=== PATIENT | female | born 1955 | race Caucasian/White ===

== ENCOUNTER → 2016-08-14 | Outpatient (CLI) | payer MEDICARE ==
--- NOTE | 2016-08-18 08:11 | MM ---
Reason for exam: screening (asymptomatic). Last mammogram was performed 15 years ago. History: Patient is postmenopausal. Family history of breast cancer. Reductions of both breasts, 2000. Physical Findings: A clinical breast exam by your physician is recommended on an annual basis and results should be correlated with mammographic findings. MG 3D Screening Mammo W/Cad Bilateral CC and MLO view(s) were taken. No prior studies available for comparison. 5mm circumscribed ovoid nodule 9 o'clock left breast anterior to middle depth. 6 months follow up recommended. Bilateral foci of fat necrosis. ASSESSMENT: Probably benign, BI-RAD 3 RECOMMENDATION: Follow-up diagnostic mammogram of the left breast in 6 months.
== END | disposition home or self-care (01) ==
LOC: RADMAMWWP 14:28
PROVIDERS: ATTEND Family Medicine
DX: Z12.31 Encounter for screening mammogram for malignant neoplasm of breast (principal)
CPT/HCPCS: 77063; G0202

== ENCOUNTER 2018-04-07 14:22 | Inpatient (IN) | payer MEDICARE ==
[2018-04-07] MEDS ORDERED: methylPREDNISolone SOD SUCCI 125 MG/2 ML VIAL IV STA (14:29)
[2018-04-07] MEDS ORDERED: IPRATROPIUM-ALBUTEROL 3 ML NEB INHALATION STA (14:29)
[2018-04-07] MEDS ORDERED: LORazepam 2 MG/ML INJ IV STA (14:31)
--- NOTE | 2018-04-07 14:38 | ED ---
SOB HPI - General Stated Complaint: NAN Time Seen by Provider: 04/07/18 14:22 Source: patient, RN notes reviewed Mode of arrival: EMS Limitations: no limitations - History of Present Illness Initial Comments: This is a 62-year-old female was brought in by EMS with complaints of shortness of breath which began last evening she started having worsening symptoms also had nausea vomiting 3 starting at 5 AM this morning felt febrile. Had a cough some dark phlegm until just prior to arrival here notes clear she denies any overt fevers chills and denies any chest pain. Upon arrival she is noted to be very dyspneic and appears be hyperventilating. MD Complaint: shortness of breath, anxiety - Related Data Home Medications Medication Instructions Recorded Confirmed Dm/PE/Acetaminophen/Doxylamine 1 tab PO Q6HR PRN 04/07/18 04/07/18 [Vicks Nyquil Severe Cold-Flu] Gabapentin [Neurontin] 100 mg PO HS 04/07/18 04/07/18 Ibuprofen [Motrin] 800 mg PO TID PRN 04/07/18 04/07/18 Loperamide [Imodium] 2 mg PO TID-W/MEALS 04/07/18 04/07/18 Ranitidine HCl 300 mg PO BID 04/07/18 04/07/18 Allergies Allergy/AdvReac Type Severity Reaction Status Date / Time acetaminophen [From Vicodin] Allergy Unknown Verified 04/07/18 15:56 fentanyl Allergy Unknown Verified 04/07/18 15:56 fluticasone Allergy Unknown Verified 04/07/18 15:56 [From Advair Diskus] hydrocodone [From Vicodin] Allergy Unknown Verified 04/07/18 15:56 morphine Allergy Unknown Verified 04/07/18 15:56 salmeterol Allergy Unknown Verified 04/07/18 15:56 [From Advair Diskus] tramadol [From Ultram] Allergy Unknown Verified 04/07/18 15:56 some metals Allergy Unknown Uncoded 04/07/18 14:54 Review of Systems ROS Statement: Those systems with pertinent positive or pertinent negative responses have been documented in the HPI. ROS Other: All systems not noted in ROS Statement are negative. Past Medical History Past Medical History: COPD, Fibromyalgia Additional Past Medical History / Comment(s): back pain. diverticulosis History of Any Multi-Drug Resistant Organisms: None Reported Past Surgical History: Cholecystectomy, Hysterectomy Additional Past Surgical History / Comment(s): breast reduction. Past Psychological History: No Psychological Hx Reported Smoking Status: Former smoker Past Alcohol Use History: Rare Past Drug Use History: None Reported General Exam - General Exam Comments Initial Comments: This a well-developed well-nourished awake alert anxious appearing female she does appear to be hyperventilating. Limitations: no limitations General appearance: alert, anxious Head exam: Present: atraumatic, normocephalic, normal inspection Eye exam: Present: normal appearance, PERRL, EOMI. Absent: scleral icterus, conjunctival injection, periorbital swelling ENT exam: Present: normal exam, mucous membranes moist Neck exam: Present: normal inspection. Absent: tenderness, meningismus, lymphadenopathy Respiratory exam: Present: wheezes, decreased breath sounds. Absent: respiratory distress, rales, rhonchi, stridor Cardiovascular Exam: Present: normal rhythm, tachycardia, normal heart sounds. Absent: systolic murmur, diastolic murmur, rubs, gallop, clicks GI/Abdominal exam: Present: soft, normal bowel sounds. Absent: distended, tenderness, guarding, rebound, rigid Extremities exam: Present: normal inspection, full ROM, normal capillary refill. Absent: tenderness, pedal edema, joint swelling, calf tenderness Back exam: Present: normal inspection Neurological exam: Present: alert, oriented X3, CN II-XII intact Psychiatric exam: Present: normal affect, normal mood Skin exam: Present: warm, dry, intact, normal color. Absent: rash Course Vital Signs 04/07/18 04/07/18 04/07/18 14:27 14:30 14:34 Temperature 100.8 F H Pulse Rate 119 H 110 H Respiratory 30 H 34 H Rate Blood Pressure 160/77 O2 Sat by Pulse 98 Oximetry 04/07/18 04/07/18 14:44 16:15 Temperature 101.8 F H Pulse Rate 106 H 106 H Respiratory 20 Rate Blood Pressure 141/81 O2 Sat by Pulse 97 Oximetry - Reevaluation(s) Reevaluation #1: 04/07/18 17:16 I did reevaluate patient several occasions she still feeling much better though her breathing has improved she is not hyperventilating a more. Repeat examination reveals diminished breath sounds. Medical Decision Making - Medical Decision Making Patient will be admitted with treatment for COPD exacerbation her lactic acid was elevated she did receive adequate IV fluids IV antibiotics she likely also has a right maxillary sinusitis. - Lab Data Result diagrams: 04/07/18 14:45 04/07/18 14:45 Lab Results 04/07/18 04/07/18 04/07/18 Range/Units 14:45 14:45 14:45 WBC 11.6 H (3.8-10.6) k/uL RBC 3.81 (3.80-5.40) m/uL Hgb 11.3 L (11.4-16.0) gm/dL Hct 33.6 L (34.0-46.0) % MCV 88.2 (80.0-100.0) fL MCH 29.7 (25.0-35.0) pg MCHC 33.7 (31.0-37.0) g/dL RDW 12.9 (11.5-15.5) % Plt Count 296 (150-450) k/uL Neutrophils % 88 % Lymphocytes % 6 % Monocytes % 3 % Eosinophils % 2 % Basophils % 0 % Neutrophils # 10.2 H (1.3-7.7) k/uL Lymphocytes # 0.6 L (1.0-4.8) k/uL Monocytes # 0.4 (0-1.0) k/uL Eosinophils # 0.2 (0-0.7) k/uL Basophils # 0.0 (0-0.2) k/uL PT (9.0-12.0) sec INR (<1.2) APTT (22.0-30.0) sec D-Dimer (<0.60) mg/L FEU Sodium 141 (137-145) mmol/L Potassium 4.0 (3.5-5.1) mmol/L Chloride 111 H (98-107) mmol/L Carbon Dioxide 18 L (22-30) mmol/L Anion Gap 12 mmol/L BUN 14 (7-17) mg/dL Creatinine 0.70 (0.52-1.04) mg/dL Est GFR (CKD-EPI)AfAm >90 (>60 ml/min/1.73 sqM) Est GFR (CKD-EPI)NonAf >90 (>60 ml/min/1.73 sqM) Glucose 119 H (74-99) mg/dL Plasma Lactic Acid Arnoldo (0.7-2.0) mmol/L Calcium 9.7 (8.4-10.2) mg/dL Magnesium 1.6 (1.6-2.3) mg/dL Total Bilirubin 0.7 (0.2-1.3) mg/dL AST 52 H (14-36) U/L ALT 49 (9-52) U/L Alkaline Phosphatase 86 (38-126) U/L Total Creatine Kinase 99 (30-135) U/L CK-MB (CK-2) 0.4 (0.0-2.4) ng/mL CK-MB (CK-2) Rel Index 0.4 Troponin I <0.012 (0.000-0.034) ng/mL NT-Pro-B Natriuret Pep pg/mL Total Protein 7.1 (6.3-8.2) g/dL Albumin 4.3 (3.5-5.0) g/dL 04/07/18 04/07/18 04/07/18 Range/Units 14:45 14:45 14:45 WBC (3.8-10.6) k/uL RBC (3.80-5.40) m/uL Hgb (11.4-16.0) gm/dL Hct (34.0-46.0) % MCV (80.0-100.0) fL MCH (25.0-35.0) pg MCHC (31.0-37.0) g/dL RDW (11.5-15.5) % Plt Count (150-450) k/uL Neutrophils % % Lymphocytes % % Monocytes % % Eosinophils % % Basophils % % Neutrophils # (1.3-7.7) k/uL Lymphocytes # (1.0-4.8) k/uL Monocytes # (0-1.0) k/uL Eosinophils # (0-0.7) k/uL Basophils # (0-0.2) k/uL PT 9.7 (9.0-12.0) sec INR 1.0 (<1.2) APTT 18.2 L (22.0-30.0) sec D-Dimer 0.42 (<0.60) mg/L FEU Sodium (137-145) mmol/L Potassium (3.5-5.1) mmol/L Chloride (98-107) mmol/L Carbon Dioxide (22-30) mmol/L Anion Gap mmol/L BUN (7-17) mg/dL Creatinine (0.52-1.04) mg/dL Est GFR (CKD-EPI)AfAm (>60 ml/min/1.73 sqM) Est GFR (CKD-EPI)NonAf (>60 ml/min/1.73 sqM) Glucose (74-99) mg/dL Plasma Lactic Acid Arnoldo 4.1 H* (0.7-2.0) mmol/L Calcium (8.4-10.2) mg/dL Magnesium (1.6-2.3) mg/dL Total Bilirubin (0.2-1.3) mg/dL AST (14-36) U/L ALT (9-52) U/L Alkaline Phosphatase (38-126) U/L Total Creatine Kinase (30-135) U/L CK-MB (CK-2) (0.0-2.4) ng/mL CK-MB (CK-2) Rel Index Troponin I (0.000-0.034) ng/mL NT-Pro-B Natriuret Pep 230 pg/mL Total Protein (6.3-8.2) g/dL Albumin (3.5-5.0) g/dL - EKG Data -: EKG Interpreted by Me (Sinus tachycardia with a rate of 109. Interval 128 QRS duration 74 QT since QTC 336/452 nonspecific T-wave configuration in the inferior leads) EKG shows normal: sinus rhythm (Sinus tachycardia with a rate of 109. Interval 128 QRS duration 74 QT since QTC 336/452 nonspecific T-wave configuration), axis (Sinus tachycardia rate of 109. Interval 128 respirations 74 QT since QTC 336/452 nonspecific inferior T-wave configuration) - Radiology Data Radiology results: report reviewed (I did review the imaging and reports), image reviewed Critical Care Time Critical Care Time: Yes Critical Care Time: 32 minutes of critical care time which was initial monitoring the EMS call and discussed with paramedics history physical labs x-rays several reevaluation patient responsive therapy discuss with the patient family regarding findings discussion with the admitting physician admission orders and documentation of the above. Disposition Clinical Impression: Acute exacerbation of chronic obstructive airways disease, Adult respiratory distress syndrome, Maxillary sinusitis, Febrile illness, acute, Lactic acidosis , Hyperventilation syndrome Disposition: ADMITTED IP TO THIS HOSP Condition: Stable Referrals: Enrike Vargas MD [Primary Care Provider] - 1-2 days
[2018-04-07] MEDS ORDERED: SODIUM CHLORIDE 0.9% 1,000 ML IV STA ×2 (14:39)
[2018-04-07 15:02] LABS: Basophils % (A) 0 %; Eosinophils # (A) 0.2 k/uL (0-0.7); Eosinophils % (A) 2 %; HCT 33.6 % (34.0-46.0); HGB 11.3 gm/dL (11.4-16.0); Lymphocytes # (A) 0.6 k/uL (1.0-4.8); Lymphocytes % (A) 6 %; MCH 29.7 pg (25.0-35.0); MCHC 33.7 g/dL (31.0-37.0); MCV 88.2 fL (80.0-100.0); Mean Platelet Volume 7.6; Monocytes # (A) 0.4 k/uL (0-1.0); Monocytes % (A) 3 %; Neutrophils # (A) 10.2 k/uL (1.3-7.7); Neutrophils % (A) 88 %; Platelet Count 296 k/uL (150-450); RBC 3.81 m/uL (3.80-5.40); RDW 12.9 % (11.5-15.5); WBC 11.6 k/uL (3.8-10.6)
[2018-04-07 15:18] LABS: ALT 49 U/L (9-52); AST 52 U/L (14-36); Albumin 4.3 g/dL (3.5-5.0); Alkaline Phosphatase 86 U/L (38-126); Anion Gap 12 mmol/L; Blood Urea Nitrogen 14 mg/dL (7-17); Calcium 9.7 mg/dL (8.4-10.2); Carbon Dioxide 18 mmol/L (22-30); Chloride 111 mmol/L (98-107); Glucose 119 mg/dL (74-99); Magnesium 1.6 mg/dL (1.6-2.3); Sodium 141 mmol/L (137-145); Total Bilirubin 0.7 mg/dL (0.2-1.3); Total Protein 7.1 g/dL (6.3-8.2)
--- NOTE | 2018-04-07 15:20 | XR ---
EXAMINATION TYPE: XR chest 2V DATE OF EXAM: 04/07/2018 COMPARISON: NONE TECHNIQUE: PA and lateral views submitted. HISTORY: Difficulty breathing FINDINGS: The lungs are clear and there is no pneumothorax, pleural effusion, or focal pneumonia. Atheroscler otic change aorta. Arthropathy of the right shoulder. Limited interstitial assessment due to poor ins piration. Hypertrophic change of the spine IMPRESSION: 1. No acute process.
[2018-04-07 15:22] LABS: Creatine Kinase 99 U/L (30-135)
[2018-04-07 15:25] LABS: D-Dimer 0.42 mg/L FEU (<0.60); Prothrombin Time 9.7 sec (9.0-12.0)
[2018-04-07 15:31] LABS: Partial Thromboplastin Time 18.2 sec (22.0-30.0)
[2018-04-07] MEDS ORDERED: SODIUM CHLORIDE 0.9% 2,000 ML IV ONE (15:31)
[2018-04-07 15:36] LABS: Creatine Kinase MB 0.4 ng/mL (0.0-2.4); Troponin I <0.012 ng/mL (0.000-0.034)
[2018-04-07] MEDS ORDERED: IBUPROFEN 600 MG TAB PO STA (16:19)
[2018-04-07] MEDS: IPRATROPIUM-ALBUTEROL 3 ML NEB INHALATION SCH (19:12)
--- NOTE | 2018-04-07 19:16 | P.HPIM ---
History of Present Illness H&P Date: 04/07/18 Chief Complaint: Sinus congestion Patient is a 62-year-old female with a past medical history of diverticulosis and COPD who presented to the ED with chief complaint of sinus congestion with headache and shortness of breath. The patient notes that she has been having sinus congestion ongoing for the past several weeks, with associated headache, postnasal drip, facial pain, positional facial pressure, and ear fullness. She described the headache as a pressure like sensation, located at the frontal aspect, with no radiation, 5/10, worsened by bending forward, and no alleviating factors. She also notes that over the past 1 day she has been having a cough productive of brown phlegm, with sore throat, and an episode of vomiting earlier today. She otherwise denied chest pain, fever, lower extremity pain, lower extremity edema, recent travel, or sick contacts. The patient's family at the bedside endorsed that the patient has had a poor oral intake for the past several days. Review of Systems Pertinent positives and negatives as discussed in HPI, a complete review of systems was performed and all other systems are negative. Past Medical History Past Medical History: COPD, Fibromyalgia Additional Past Medical History / Comment(s): back pain. diverticulosis History of Any Multi-Drug Resistant Organisms: None Reported Past Surgical History: Cholecystectomy, Hysterectomy Additional Past Surgical History / Comment(s): breast reduction. Past Psychological History: No Psychological Hx Reported Smoking Status: Former smoker Past Alcohol Use History: Rare Past Drug Use History: None Reported Medications and Allergies Home Medications Medication Instructions Recorded Confirmed Type Dm/PE/Acetaminophen/Doxylamine 1 tab PO Q6HR PRN 04/07/18 04/07/18 History [Vicks Nyquil Severe Cold-Flu] Gabapentin [Neurontin] 100 mg PO HS 04/07/18 04/07/18 History Ibuprofen [Motrin] 800 mg PO TID PRN 04/07/18 04/07/18 History Loperamide [Imodium] 2 mg PO TID-W/MEALS 04/07/18 04/07/18 History Ranitidine HCl 300 mg PO BID 04/07/18 04/07/18 History Allergies Allergy/AdvReac Type Severity Reaction Status Date / Time acetaminophen [From Vicodin] Allergy Unknown Verified 04/07/18 15:56 fentanyl Allergy Unknown Verified 04/07/18 15:56 fluticasone Allergy Unknown Verified 04/07/18 15:56 [From Advair Diskus] hydrocodone [From Vicodin] Allergy Unknown Verified 04/07/18 15:56 morphine Allergy Unknown Verified 04/07/18 15:56 salmeterol Allergy Unknown Verified 04/07/18 15:56 [From Advair Diskus] tramadol [From Ultram] Allergy Unknown Verified 04/07/18 15:56 some metals Allergy Unknown Uncoded 04/07/18 14:54 Physical Exam Vitals: Vital Signs Temp Pulse Resp BP Pulse Ox 04/07/18 16:15 101.8 F H 106 H 20 141/81 97 04/07/18 14:44 106 H 04/07/18 14:34 110 H 04/07/18 14:30 34 H 04/07/18 14:27 100.8 F H 119 H 30 H 160/77 98 Intake and Output 04/07/18 04/07/18 04/07/18 06:59 14:59 22:59 Other: Weight 72.575 kg General: [non toxic], [no distress], [appears at stated age], [normal weight] Derm: [no unusual rashes/lesions] [no unusual ecchymoses], [warm], [dry] Head: [atraumatic], [normocephalic], facial tenderness to palpation over frontal and maxillary sinuses, no nuchal rigidity noted Eyes: [EOMI], [no lid lag], [anicteric sclera], [pupils equal round reactive to light] ENT: [Nose and ears atraumatic], [no thrush], mild pharyngeal erythema Neck: [No thyromegaly], [no cervical lymphadenopathy], [trachea midline], [ supple] Mouth: [no lip lesion], [mucus membranes moist] Cardiovascular: [S1S2 reg], [no murmur], [positive posterior tibial pulse bilateral], [no edema], [capillary refill less than 2 seconds] Lungs: [CTA bilateral], [no rhonchi, no rales] , [no accessory muscle use] Abdominal: [soft], [ nontender to palpation], [no guarding], [no appreciable organomegaly], [normal bowel sounds] Ext: [no gross muscle atrophy], [muscle strength 5 out of 5 in all 4 extremities grossly], [no contractures], Neuro: [ CN II-XI grossly intact], [light touch intact all 4 extremities], [ finger to nose within normal limits], negative brudzinski's and kernig's, no nuchal rigidity Psych: [Alert], [oriented], [appropriate affect] Results CBC & Chem 7: 04/07/18 14:45 04/07/18 14:45 Labs: Abnormal Lab Results - Last 24 Hours (Table) 04/07/18 04/07/18 04/07/18 Range/Units 14:45 14:45 14:45 WBC 11.6 H (3.8-10.6) k/uL Hgb 11.3 L (11.4-16.0) gm/dL Hct 33.6 L (34.0-46.0) % Neutrophils # 10.2 H (1.3-7.7) k/uL Lymphocytes # 0.6 L (1.0-4.8) k/uL APTT 18.2 L (22.0-30.0) sec Chloride 111 H (98-107) mmol/L Carbon Dioxide 18 L (22-30) mmol/L Glucose 119 H (74-99) mg/dL Plasma Lactic Acid Arnoldo (0.7-2.0) mmol/L AST 52 H (14-36) U/L 04/07/18 Range/Units 14:45 WBC (3.8-10.6) k/uL Hgb (11.4-16.0) gm/dL Hct (34.0-46.0) % Neutrophils # (1.3-7.7) k/uL Lymphocytes # (1.0-4.8) k/uL APTT (22.0-30.0) sec Chloride (98-107) mmol/L Carbon Dioxide (22-30) mmol/L Glucose (74-99) mg/dL Plasma Lactic Acid Arnoldo 4.1 H* (0.7-2.0) mmol/L AST (14-36) U/L Assessment and Plan Plan: Severe sepsis secondary to acute sinusitis, cannot rule out meningitis -Will obtain CT head for now, will plan for LP following scan -Continue with IV fluids 150 mL an hour -Will start Ceftriaxone 2 g q12h and Ampicillin 1 g q4h -Monitor lactate level -Neuro checks DVT//GI prophylaxis -Heparin -No indication for GI prophylaxis The patient is admitted with an anticipated greater than 2 midnight stay for evaluation of sinusitis. CODE STATUS: Full code Discussed with: Patient Anticipated discharge date: 04/10/[address]: Home A total of 60 minutes was spent on the care of this complex patient more than 50 % of the time was spent in counseling and care coordination.
--- NOTE | 2018-04-07 19:18 | CT ---
EXAMINATION TYPE: CT brain wo/w con DATE OF EXAM: 04/07/2018 COMPARISON: None HISTORY: PEREZ and dizziness CT DLP: 2190.6 mGycm Automated exposure control for dose reduction was used. CONTRAST: CT scan of the head is performed without and with IV Contrast, patient injected with 100 mL of Isovue 300. FINDINGS: Ventricles and sulci appear normal. There is no mass effect nor midline shift. There is no sign of in tracranial hemorrhage. There is mucosal thickening in the ethmoid air cells. There is some mucosal th ickening in the maxillary sinuses. Calvarium is intact. IMPRESSION: Sinusitis. Negative CT scan of the brain.
[2018-04-07] MEDS ORDERED: AMOXIC-POT CLAV 875-125MG 1 EACH TAB PO SCH (21:00)
[2018-04-07] MEDS: LOPERAMIDE 2 MG CAP PO SCH (21:14)
[2018-04-07] MEDS: AMPICILLIN 1,000 MG in SODIUM CHLORIDE 0.9% 50 ML IVPB SCH ×2 (21:36→23:35)
[2018-04-07] MEDS: HEPARIN SODIUM,PORCINE 5,000 UNIT/ML 1 ML VIAL SQ SCH (21:54)
[2018-04-07] MEDS: methylPREDNISolone SOD SUCCI 125 MG/2 ML VIAL IV SCH (21:55)
[2018-04-07] MEDS: FAMOTIDINE 20 MG TAB PO SCH (21:56)
[2018-04-07] MEDS: GABAPENTIN 100 MG CAP PO SCH (21:56)
[2018-04-07] MEDS: cefTRIAXone 2,000 MG in SODIUM CHLORIDE 0.9% 100 ML IVPB SCH (22:16)
[2018-04-07] MEDS: IBUPROFEN 800 MG TAB PO PRN (23:34)
[2018-04-07] MEDS ORDERED: ONDANSETRON 4 MG TAB PO PRN (23:37)
[2018-04-08] MEDS: AMPICILLIN 1,000 MG in SODIUM CHLORIDE 0.9% 50 ML IVPB SCH ×6 (04:01→23:45)
[2018-04-08 06:22] LABS: HCT 33.3 % (34.0-46.0); MCH 30.3 pg (25.0-35.0); MCHC 33.2 g/dL (31.0-37.0); MCV 91.4 fL (80.0-100.0); Mean Platelet Volume 7.9; Platelet Count 205 k/uL (150-450); RBC 3.64 m/uL (3.80-5.40); RDW 13.4 % (11.5-15.5); WBC 11.7 k/uL (3.8-10.6)
[2018-04-08] MEDS: methylPREDNISolone SOD SUCCI 125 MG/2 ML VIAL IV SCH ×4 (06:30→23:45)
[2018-04-08] MEDS: LOPERAMIDE 2 MG CAP PO SCH ×3 (06:30→18:09)
[2018-04-08 06:35] LABS: ALT 42 U/L (9-52); AST 40 U/L (14-36); Albumin 3.3 g/dL (3.5-5.0); Alkaline Phosphatase 58 U/L (38-126); Anion Gap 7 mmol/L; Blood Urea Nitrogen 12 mg/dL (7-17); Carbon Dioxide 18 mmol/L (22-30); Chloride 119 mmol/L (98-107); Glucose 141 mg/dL (74-99); Potassium 3.8 mmol/L (3.5-5.1); Sodium 144 mmol/L (137-145); Total Bilirubin 0.2 mg/dL (0.2-1.3)
[2018-04-08] MEDS: HEPARIN SODIUM,PORCINE 5,000 UNIT/ML 1 ML VIAL SQ SCH ×2 (08:38→20:38)
[2018-04-08] MEDS: FAMOTIDINE 20 MG TAB PO SCH (08:41)
[2018-04-08] MEDS: IPRATROPIUM-ALBUTEROL 3 ML NEB INHALATION SCH ×4 (08:57→20:50)
[2018-04-08] MEDS: IBUPROFEN 800 MG TAB PO PRN (09:19)
[2018-04-08] MEDS: cefTRIAXone 2,000 MG in SODIUM CHLORIDE 0.9% 100 ML IVPB SCH (10:19)
[2018-04-08] MEDS: PANTOPRAZOLE 40 MG TABLET PO SCH (10:27)
--- NOTE | 2018-04-08 13:54 | P.CONS ---
History of Present Illness - Reason for Consult Consult date: 04/08/18 Severe sepsis secondary to acute bacterial sinusitis suspect meningitis - History of Present Illness This is a 62-year-old female patient because onset on Wednesday of not feeling well with sinus congestion and drainage, runny nose, shortness of breath with cough along with sore throat. She took NyQuil PM and by she couldn't make it down the stairs due to weakness. She states her chest was hurting and she was having a cough that will she thought was mostly secondary to GERD. She denies having any sick contacts but she works at [employer] an elderly woman had left on the stretcher with some type of illness and she was concerned that she was exposed to something there. She presented with a temperature max of 101.8, white count 11.6, creatinine was 0.71. Lactic acid initially 4.1 and repeat 1.8. D-dimer was 0.42, troponin was negative. Albumin 4.3. Patient was started on Unasyn, Rocephin and Solu-Medrol which all have been continued. Chest x-ray showed no acute findings and CAT scan of the brain showed no acute findings. She was admitted to the selective care unit apparently there was some discussion about lumbar puncture. Patient states she has had multiple back surgeries and does not wish to undergo an lumbar puncture. At the time of this evaluation, patient states that she is feeling much improved from yesterday but continues to have some weakness. She feels the antibiotics have already helped her along with the IV fluids. She also complains of a rash to the anterior neck and face that it started after she arrived to the hospital. Review of Systems All systems: negative Constitutional: Reports chills, Reports fatigue, Reports fever, Reports malaise , Reports weakness, Denies poor appetite, Denies weight loss Eyes: denies blurred vision, denies pain Ears, nose, mouth and throat: Reports headache, Reports nasal congestion, Reports nasal discharge, Reports sore throat, Denies dental pain, Denies dysphagia, Denies mouth pain, Denies vertigo Cardiovascular: Denies chest pain, Denies decreased exercise tolerance, Denies dyspnea on exertion, Denies leg edema, Denies lightheadedness, Denies shortness of breath, Denies syncope Respiratory: Reports cough, Reports cough with sputum, Denies dyspnea, Denies excessive sputum, Denies hemoptysis, Denies home oxygen, Denies wheezing Gastrointestinal: Denies abdominal pain, Denies diarrhea, Denies nausea, Denies vomiting Genitourinary: Denies dysuria, Denies hematuria Musculoskeletal: Denies myalgias Integumentary: Denies pruritus, Denies rash Neurological: Denies numbness, Denies weakness Psychiatric: Denies anxiety, Denies depression Endocrine: Denies fatigue, Denies weight change Past Medical History Past Medical History: Cancer, COPD, Fibromyalgia, Pneumonia Additional Past Medical History / Comment(s): rt breast cancer-sx/radaition, chemo.pt stated the chemo affected her kidneys and she had to do hemodialysis for approx 3 months-problem resolved" back pain , diverticulosis, migraines, emphysema. lupus, ddd-past bulging/ruptured discs(sx), past broken rt ankle- casted History of Any Multi-Drug Resistant Organisms: None Reported Past Surgical History: Breast Surgery, Cholecystectomy, Hysterectomy Additional Past Surgical History / Comment(s): rt breast lumpectomy, mavis breast reduction, 6 back sx,partial hysterectomy Past Anesthesia/Blood Transfusion Reactions: No Reported Reaction Additional Past Anesthesia/Blood Transfusion Reaction / Comm: clausterphobia Smoking Status: Former smoker Additional Past Alcohol Use History / Comment(s): Patient was smoker one pack per day for 30-40 years and quit 13 years ago. She denies any marijuana or illicit drug use. No alcohol use. Patient lives at home with her . She is currently on disability due to her back and has worked in retail in the past. - Past Family History Mother Family Medical History: Cancer Additional Family Medical History / Comment(s): lung and colon cancer Father Family Medical History: Coronary Artery Disease (CAD), Myocardial Infarction ([place] ) Medications and Allergies Home Medications Medication Instructions Recorded Confirmed Type Dm/PE/Acetaminophen/Doxylamine 1 tab PO Q6HR PRN 04/07/18 04/07/18 History [Rolando Tolbert Severe Cold-Flu] Gabapentin [Neurontin] 100 mg PO HS 04/07/18 04/07/18 History Ibuprofen [Motrin] 800 mg PO TID PRN 04/07/18 04/07/18 History Loperamide [Imodium] 2 mg PO TID-W/MEALS 04/07/18 04/07/18 History Ranitidine HCl 300 mg PO BID 04/07/18 04/07/18 History Allergies Allergy/AdvReac Type Severity Reaction Status Date / Time acetaminophen [From Vicodin] Allergy Unknown Verified 04/07/18 15:56 fentanyl Allergy Unknown Verified 04/07/18 15:56 fluticasone Allergy Unknown Verified 04/07/18 15:56 [From Advair Diskus] hydrocodone [From Vicodin] Allergy Unknown Verified 04/07/18 15:56 morphine Allergy Unknown Verified 04/07/18 15:56 salmeterol Allergy Unknown Verified 04/07/18 15:56 [From Advair Diskus] tramadol [From Ultram] Allergy Unknown Verified 04/07/18 15:56 some metals Allergy Unknown Uncoded 04/07/18 14:54 Physical Exam Vitals: Vital Signs Temp Pulse Pulse Resp BP BP Pulse Ox 04/08/18 12:06 96 04/08/18 11:53 96 04/08/18 11:18 97.5 F L 83 20 126/77 98 04/08/18 09:07 96 04/08/18 08:59 92 95 04/08/18 08:00 20 04/08/18 07:46 96.5 F L 78 20 123/63 95 04/08/18 04:00 97.8 F 84 18 119/59 96 04/08/18 00:00 98.3 F 98 20 117/55 97 04/07/18 19:31 99.8 F H 81 16 168/80 98 04/07/18 19:28 94 04/07/18 19:13 90 04/07/18 19:00 99.8 F H 83 16 163/61 96 04/07/18 16:15 101.8 F H 106 H 20 141/81 97 04/07/18 15:30 100.4 F H 92 20 158/80 98 04/07/18 14:44 106 H 04/07/18 14:34 110 H 04/07/18 14:30 34 H 04/07/18 14:27 100.8 F H 119 H 30 H 160/77 98 Intake and Output 04/07/18 04/08/18 04/08/18 22:59 06:59 14:59 Intake Total 825 800 150 Balance 825 800 150 Intake: IV 150 Ampicillin 1,000 mg In 100 Sodium Chloride 0.9% 50 ml @ 100 mls/hr IVPB Q4HR [facility] Rx#:[id number] cefTRIAXone 1,000 mg In 50 Sodium Chloride 0.9% 50 ml @ 100 mls/hr IVPB ONCE STA Rx#:[id number] Oral 825 800 Other: Voiding Method Toilet Toilet # Voids 1 1 Weight 77 kg Gen: This is a 62-year-old female. She is sitting up in bed and appears to be comfortable and in no acute distress. No respiratory distress is noted. HEENT: Head is atraumatic, normocephalic. Pupils equal, round. Sclerae is anicteric. Conjunctiva are pink. Mucous members of the mouth are moist. No lesions are noted patient is in good order. NECK: Supple. No JVD. No lymphadenopathy. No thyromegaly. No nuchal rigidity. Full range of motion to the neck. LUNGS: Clear to auscultation. No wheezes or rhonchi. No intercostal retractions. HEART: Regular rate and rhythm. No murmur. ABDOMEN: Soft. Bowel sounds are present. No masses. No tenderness. EXTREMITIES: No pedal edema. No calf tenderness. Dorsalis pedis +2 bilaterally. NEUROLOGICAL: Patient is awake, alert and oriented x3. Cranial nerves 2 through 12 are grossly intact. Results Results: Laboratory Results WBC 11.7 k/uL (3.8-10.6) H 04/08/18 05:54 RBC 3.64 m/uL (3.80-5.40) L 04/08/18 05:54 Hgb 11.0 gm/dL (11.4-16.0) L 04/08/18 05:54 Hct 33.3 % (34.0-46.0) L 04/08/18 05:54 MCV 91.4 fL (80.0-100.0) 04/08/18 05:54 MCH 30.3 pg (25.0-35.0) 04/08/18 05:54 MCHC 33.2 g/dL (31.0-37.0) 04/08/18 05:54 RDW 13.4 % (11.5-15.5) 04/08/18 05:54 Plt Count 205 k/uL (150-450) 04/08/18 05:54 Neutrophils % 88 % 04/07/18 14:45 Lymphocytes % 6 % 04/07/18 14:45 Monocytes % 3 % 04/07/18 14:45 Eosinophils % 2 % 04/07/18 14:45 Basophils % 0 % 04/07/18 14:45 Neutrophils # 10.2 k/uL (1.3-7.7) H 04/07/18 14:45 Lymphocytes # 0.6 k/uL (1.0-4.8) L 04/07/18 14:45 Monocytes # 0.4 k/uL (0-1.0) 04/07/18 14:45 Eosinophils # 0.2 k/uL (0-0.7) 04/07/18 14:45 Basophils # 0.0 k/uL (0-0.2) 04/07/18 14:45 PT 9.7 sec (9.0-12.0) 04/07/18 14:45 INR 1.0 (<1.2) 04/07/18 14:45 APTT 18.2 sec (22.0-30.0) L 04/07/18 14:45 D-Dimer 0.42 mg/L FEU (<0.60) 04/07/18 14:45 Sodium 144 mmol/L (137-145) 04/08/18 05:54 Potassium 3.8 mmol/L (3.5-5.1) 04/08/18 05:54 Chloride 119 mmol/L (98-107) H 04/08/18 05:54 Carbon Dioxide 18 mmol/L (22-30) L 04/08/18 05:54 Anion Gap 7 mmol/L 04/08/18 05:54 BUN 12 mg/dL (7-17) 04/08/18 05:54 Creatinine 0.71 mg/dL (0.52-1.04) 04/08/18 05:54 Est GFR (CKD-EPI)AfAm >90 (>60 ml/min/1.73 sqM) 04/08/18 05:54 Est GFR (CKD-EPI)NonAf >90 (>60 ml/min/1.73 sqM) 04/08/18 05:54 Glucose 141 mg/dL (74-99) H 04/08/18 05:54 Lactic Ac Sepsis Rflx Y 04/07/18 15:30 Plasma Lactic Acid Arnoldo 1.9 mmol/L (0.7-2.0) 04/08/18 05:54 Calcium 9.0 mg/dL (8.4-10.2) 04/08/18 05:54 Magnesium 1.6 mg/dL (1.6-2.3) 04/07/18 14:45 Total Bilirubin 0.2 mg/dL (0.2-1.3) 04/08/18 05:54 AST 40 U/L (14-36) H 04/08/18 05:54 ALT 42 U/L (9-52) 04/08/18 05:54 Alkaline Phosphatase 58 U/L (38-126) 04/08/18 05:54 Total Creatine Kinase 99 U/L (30-135) 04/07/18 14:45 CK-MB (CK-2) 0.4 ng/mL (0.0-2.4) 04/07/18 14:45 CK-MB (CK-2) Rel Index 0.4 04/07/18 14:45 Troponin I <0.012 ng/mL (0.000-0.034) 04/07/18 14:45 NT-Pro-B Natriuret Pep 230 pg/mL 04/07/18 14:45 Total Protein 6.0 g/dL (6.3-8.2) L 04/08/18 05:54 Albumin 3.3 g/dL (3.5-5.0) L 04/08/18 05:54 CBC & Chem 7: 04/08/18 05:54 04/08/18 05:54 Labs: Abnormal Lab Results - Last 24 Hours (Table) 04/07/18 04/07/18 04/07/18 Range/Units 14:45 14:45 14:45 WBC 11.6 H (3.8-10.6) k/uL RBC (3.80-5.40) m/uL Hgb 11.3 L (11.4-16.0) gm/dL Hct 33.6 L (34.0-46.0) % Neutrophils # 10.2 H (1.3-7.7) k/uL Lymphocytes # 0.6 L (1.0-4.8) k/uL APTT 18.2 L (22.0-30.0) sec Chloride 111 H (98-107) mmol/L Carbon Dioxide 18 L (22-30) mmol/L Glucose 119 H (74-99) mg/dL Plasma Lactic Acid Arnoldo (0.7-2.0) mmol/L AST 52 H (14-36) U/L Total Protein (6.3-8.2) g/dL Albumin (3.5-5.0) g/dL 04/07/18 04/08/18 04/08/18 Range/Units 14:45 05:54 05:54 WBC 11.7 H (3.8-10.6) k/uL RBC 3.64 L (3.80-5.40) m/uL Hgb 11.0 L (11.4-16.0) gm/dL Hct 33.3 L (34.0-46.0) % Neutrophils # (1.3-7.7) k/uL Lymphocytes # (1.0-4.8) k/uL APTT (22.0-30.0) sec Chloride 119 H (98-107) mmol/L Carbon Dioxide 18 L (22-30) mmol/L Glucose 141 H (74-99) mg/dL Plasma Lactic Acid Arnoldo 4.1 H* (0.7-2.0) mmol/L AST 40 H (14-36) U/L Total Protein 6.0 L (6.3-8.2) g/dL Albumin 3.3 L (3.5-5.0) g/dL Assessment and Plan Plan: Is is a 62-year-old female presented to hospital with sepsis and lactic acidosis most likely secondary to acute sinusitis. Patient is currently on Unasyn and Rocephin as well as Solu-Medrol. Influenza testing will be ordered. Continue supportive care. Further recommendations as patient progresses. The above dictated assessment and findings were discussed with Dr. Urbina. The impression and plan of care have been directed as dictated. Lelo Mccain nurse practitioner acting as scribe for Dr. Urbina.
--- NOTE | 2018-04-08 17:21 | P.CON ---
Consult Note - . Consult date: 04/08/18 Assessment/Plan:: This is a 62-year-old female patient because onset on Wednesday of not feeling well with sinus congestion and drainage, runny nose, shortness of breath with cough along with sore throat. She took NyQuil PM and by she couldn't make it down the stairs due to weakness. She states her chest was hurting and she was having a cough that will she thought was mostly secondary to GERD. She denies having any sick contacts but she works at [email or web address] an elderly woman had left on the stretcher with some type of illness and she was concerned that she was exposed to something there. She presented with a temperature max of 101.8, white count 11.6, creatinine was 0.71. Lactic acid initially 4.1 and repeat 1.8. D-dimer was 0.42, troponin was negative. Albumin 4.3. Patient was started on Unasyn, Rocephin and Solu-Medrol which all have been continued. Chest x-ray showed no acute findings and CAT scan of the brain showed no acute findings. She was admitted to the selective care unit apparently there was some discussion about lumbar puncture. Patient states she has had multiple back surgeries and does not wish to undergo an lumbar puncture. At the time of this evaluation, patient states that she is feeling much improved from yesterday but continues to have some weakness. She feels the antibiotics have already helped her along with the IV fluids. She also complains of a rash to the anterior neck and face that it started after she arrived to the hospital.Please see the consult note as dictated by BUYER Apolinar Lelo Mccain. 62-year-old female who has an extensive past medical history including 6 surgeries to her spine presents to Hospital feeling very poorly with a several-day history of acute illness associated with fever chills significant sinus congestion and some shortness of breath. 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 He said influenza was requested is now come back as negative. The first was concerns that the patient could've had meningitis however she is currently awake and alert. She is without headache. Her thoughts are clear. She has no acute neurological deficits and she is able to ambulate to the restroom pushing her IV pole. The patient is now markedly improved after IV fluids, intravenous antibiotic therapy, and steroid therapy. She developed a rash that appears to already be improving on the anterior chest wall near her neck. She relates nonpruritic rash. No other rashes are noted. And is noted on the exam her neck is supple and she is no evidence of any encephalopathy. Patient likely has an acute bacterial sinusitis and abnormalities were seen the computed tomography scan consistent with an acute sinusitis. If this time cultures are in process and will have further recommendations about antibiotic therapy is cultures become available. She does have a long-standing history of COPD and emphysema but appears to not have an acute exacerbation at this time. We'll likely have her steroid therapy rapidly reduced. I agree with evaluation assessment and plan as dictated by nurse practitioner Mrs. Lelo Mccain.
--- NOTE | 2018-04-08 18:06 | P.PN ---
Subjective Progress Note Date: 04/08/18 Patient was seen and examined with the at the bedside. The patient notes that her headache and shortness of breath have improved significantly from yesterday. She further denies any more episodes of fever, chills, nausea, or vomiting. She continues to have facial pain and sinus congestion, although improved from yesterday. She otherwise denied any double vision, weakness, numbness, tingling, or dizziness. Objective - Vital Signs Vital signs: Vital Signs Temp 97.9 F 04/08/18 16:03 Pulse 86 04/08/18 16:45 Resp 20 04/08/18 16:08 BP 127/67 04/08/18 16:03 Pulse Ox 98 04/08/18 11:18 Intake & Output 04/07/18 04/08/18 04/08/18 18:59 06:59 18:59 Intake Total 1625 150 Balance 1625 150 Weight 72.575 kg 77 kg Intake: IV 150 Ampicillin 1,000 mg In 100 Sodium Chloride 0.9% 50 ml @ 100 mls/hr IVPB Q4HR [facility] Rx#:[id number] cefTRIAXone 1,000 mg In 50 Sodium Chloride 0.9% 50 ml @ 100 mls/hr IVPB ONCE STA Rx#:[id number] Oral 1625 Other: Voiding Method Toilet Toilet # Voids 1 - Exam General: Non-toxic, in no acute distress HEENT: NC/AT, anicteric sclerae, moist conjunctiva, no lid-lag, PERRLA, oropharynx clear, no erythema, exudates, facial tenderness on palpation Cardiovascular: S1/S2 wnl, no murmurs, rubs, or gallops Lungs: Decreased air entry mavis with some wheezing, no coarse breath sounds appreciated, Not using accessory muscles. Abdominal: Soft, nontender, non-distended, no guarding, rebound, or rigidity, normoactive bowel sounds Skin: Warm, dry Extremities: No edema or contractures Psychiatric: Alert and oriented to person, place and time, appropriate affect, Intact judgment , Neuro: CN II-XII grossly intact, no focal motor deficits - Labs CBC & Chem 7: 04/08/18 05:54 04/08/18 05:54 Labs: Abnormal Lab Results - Last 24 Hours (Table) 04/08/18 04/08/18 Range/Units 05:54 05:54 WBC 11.7 H (3.8-10.6) k/uL RBC 3.64 L (3.80-5.40) m/uL Hgb 11.0 L (11.4-16.0) gm/dL Hct 33.3 L (34.0-46.0) % Chloride 119 H (98-107) mmol/L Carbon Dioxide 18 L (22-30) mmol/L Glucose 141 H (74-99) mg/dL AST 40 H (14-36) U/L Total Protein 6.0 L (6.3-8.2) g/dL Albumin 3.3 L (3.5-5.0) g/dL Microbiology - Last 24 Hours (Table) 04/07/18 14:45 Blood Culture - Preliminary Blood No Growth after 24 hours Assessment and Plan Plan: Acute bacterial sinusitis, the patient showed significant improvement w/ empiric abx coverage -CT Head reviewed -Will hold off on LP at this time since patient showed significant improvement -Infectious disease recommendations appreciated -Will switch to Augmentin bid -Continue with IV fluids 150 mL an hour -Neuro checks DVT//GI prophylaxis -Heparin -No indication for GI prophylaxis CODE STATUS: Full code Discussed with: Patient Anticipated discharge date: 04/10/[address]: Home A total of 45 minutes was spent on the care of this complex patient more than 50 % of the time was spent in counseling and care coordination.
[2018-04-08] MEDS: AMOXIC-POT CLAV 875-125MG 1 EACH TAB PO SCH (20:36)
[2018-04-08] MEDS: GABAPENTIN 100 MG CAP PO SCH (20:37)
[2018-04-09] MEDS: cefTRIAXone 2,000 MG in SODIUM CHLORIDE 0.9% 100 ML IVPB SCH ×2 (00:29→21:17)
[2018-04-09] MEDS: IBUPROFEN 800 MG TAB PO PRN ×2 (00:34→14:52)
[2018-04-09] MEDS: AMPICILLIN 1,000 MG in SODIUM CHLORIDE 0.9% 50 ML IVPB SCH ×2 (03:25→21:16)
[2018-04-09] MEDS: methylPREDNISolone SOD SUCCI 125 MG/2 ML VIAL IV SCH (06:11)
[2018-04-09] MEDS: LOPERAMIDE 2 MG CAP PO SCH ×2 (06:11→12:47)
[2018-04-09] MEDS: PANTOPRAZOLE 40 MG TABLET PO SCH (06:11)
[2018-04-09 06:31] LABS: HCT 35.4 % (34.0-46.0); HGB 11.5 gm/dL (11.4-16.0); MCHC 32.4 g/dL (31.0-37.0); MCV 92.6 fL (80.0-100.0); Platelet Count 255 k/uL (150-450); RBC 3.82 m/uL (3.80-5.40); RDW 13.7 % (11.5-15.5); WBC 21.2 k/uL (3.8-10.6)
[2018-04-09 06:47] LABS: ALT 54 U/L (9-52); AST 55 U/L (14-36); Albumin 3.3 g/dL (3.5-5.0); Alkaline Phosphatase 65 U/L (38-126); Anion Gap 10 mmol/L; Blood Urea Nitrogen 15 mg/dL (7-17); Calcium 9.3 mg/dL (8.4-10.2); Carbon Dioxide 20 mmol/L (22-30); Chloride 114 mmol/L (98-107); Glucose 127 mg/dL (74-99); Potassium 3.6 mmol/L (3.5-5.1); Sodium 144 mmol/L (137-145); Total Bilirubin 0.3 mg/dL (0.2-1.3); Total Protein 5.9 g/dL (6.3-8.2)
[2018-04-09] MEDS: IPRATROPIUM-ALBUTEROL 3 ML NEB INHALATION SCH ×4 (08:43→20:08)
[2018-04-09] MEDS: AMOXIC-POT CLAV 875-125MG 1 EACH TAB PO SCH ×2 (09:25→20:43)
[2018-04-09] MEDS: HEPARIN SODIUM,PORCINE 5,000 UNIT/ML 1 ML VIAL SQ SCH ×2 (09:25→20:43)
--- NOTE | 2018-04-09 15:15 | P.PN ---
Subjective Progress Note Date: 04/09/18 Patient was seen and examined with the daughter at the bedside. The patient notes that her headache has resolved, and she has not had any further episodes of nausea or vomiting or fever or chills. She further denied any chest pain, shortness of breath, wheezing, or diarrhea. Objective - Vital Signs Vital signs: Vital Signs Temp 99 F 04/09/18 08:00 Pulse 72 04/09/18 12:37 Resp 16 04/09/18 11:45 BP 114/70 04/09/18 11:45 Pulse Ox 95 04/09/18 11:45 Intake & Output 04/08/18 04/09/18 04/09/18 18:59 06:59 18:59 Intake Total 150 840 480 Balance 150 840 480 Weight 77.4 kg Intake: IV 150 Ampicillin 1,000 mg In 100 Sodium Chloride 0.9% 50 ml @ 100 mls/hr IVPB Q4HR [facility] Rx#:[id number] cefTRIAXone 1,000 mg In 50 Sodium Chloride 0.9% 50 ml @ 100 mls/hr IVPB ONCE STA Rx#:[id number] Oral 840 480 Other: Voiding Method Toilet Toilet Toilet # Voids 1 1 2 - Exam General: Non-toxic, in no acute distress HEENT: NC/AT, anicteric sclerae, moist conjunctiva, no lid-lag, PERRLA, oropharynx clear, no erythema, exudates, No facial tenderness on palpation Cardiovascular: S1/S2 wnl, no murmurs, rubs, or gallops Lungs: Clear to auscultation bilaterally, not using accessory muscles Abdominal: Soft, nontender, non-distended, no guarding, rebound, or rigidity, normoactive bowel sounds Skin: Warm, dry Extremities: No edema or contractures Psychiatric: Alert and oriented to person, place and time, appropriate affect, Intact judgment , Neuro: CN II-XII grossly intact, no focal motor deficits - Labs CBC & Chem 7: 04/09/18 05:23 04/09/18 05:23 Labs: Abnormal Lab Results - Last 24 Hours (Table) 04/09/18 04/09/18 Range/Units 05:23 05:23 WBC 21.2 H (3.8-10.6) k/uL Chloride 114 H (98-107) mmol/L Carbon Dioxide 20 L (22-30) mmol/L Glucose 127 H (74-99) mg/dL AST 55 H (14-36) U/L ALT 54 H (9-52) U/L Total Protein 5.9 L (6.3-8.2) g/dL Albumin 3.3 L (3.5-5.0) g/dL Microbiology - Last 24 Hours (Table) 04/07/18 14:45 Blood Culture - Preliminary Blood No Growth after 24 hours Assessment and Plan Plan: Acute bacterial sinusitis, significantly improved -Infectious disease recommendations appreciated -Will switch to Augmentin bid -Discontinued Ceftriaxone and Ampicillin -Neuro checks COPD exacerbation - C/w Duonebs - Solumedrol decreased to 40 mg q12h Leukocytosis -Likely reactive secondary to steroids DVT//GI prophylaxis -Heparin -Protonix CODE STATUS: Full code Discussed with: Patient, daughter Anticipated discharge date: 04/10/[address]: Home A total of 40 minutes was spent on the care of this complex patient more than 50 % of the time was spent in counseling and care coordination.
[2018-04-09] MEDS: GABAPENTIN 100 MG CAP PO SCH (20:43)
[2018-04-09] MEDS ORDERED: methylPREDNISolone SOD SUCCI 40 MG/ML 1 ML VIAL IV SCH (21:00)
[2018-04-09] MEDS ORDERED: KETOROLAC 30 MG/ML 1 ML VIAL IVP PRN (22:33)
--- NOTE | 2018-04-09 22:33 | P.PN ---
Subjective Progress Note Date: 04/09/18 This is a 62-year-old female patient because onset on Wednesday of not feeling well with sinus congestion and drainage, runny nose, shortness of breath with cough along with sore throat. She took NyQuil PM and by she couldn't make it down the stairs due to weakness. She states her chest was hurting and she was having a cough that will she thought was mostly secondary to GERD. She denies having any sick contacts but she works at [employer] an elderly woman had left on the stretcher with some type of illness and she was concerned that she was exposed to something there. She presented with a temperature max of 101.8, white count 11.6, creatinine was 0.71. Lactic acid initially 4.1 and repeat 1.8. D-dimer was 0.42, troponin was negative. Albumin 4.3. Patient was started on Unasyn, Rocephin and Solu-Medrol which all have been continued. Chest x-ray showed no acute findings and CAT scan of the brain showed no acute findings. She was admitted to the selective care unit apparently there was some discussion about lumbar puncture. Patient states she has had multiple back surgeries and does not wish to undergo an lumbar puncture. At the time of this evaluation, patient states that she is feeling much improved from yesterday but continues to have some weakness. She feels the antibiotics have already helped her along with the IV fluids. She also complains of a rash to the anterior neck and face that it started after she arrived to the hospital. 04/09/2018 patient is feeling further improvement. She is still having some intermittent headache and white count was still at 21.2. Her fever has improved from admission it was 101.8 is now 99. She relates that she received some ibuprofen for headache Impartially effective. She has many ALLERGIES and many concerns about medication.. Objective - Vital Signs Vital signs: Vital Signs Temp 99.3 F 04/09/18 20:00 Pulse 89 04/09/18 20:17 Resp 20 04/09/18 20:00 BP 118/57 04/09/18 20:00 Pulse Ox 93 L 04/09/18 20:00 Intake & Output 04/09/18 04/09/18 04/10/18 06:59 18:59 06:59 Intake Total 840 702 Balance 840 702 Weight 77.4 kg Intake: Oral 840 702 Other: Voiding Method Toilet Toilet # Voids 1 2 # Bowel Movements 1 - Exam en: This is a 62-year-old female. She is sitting up in bed and appears to be comfortable and in no acute distress. No respiratory distress is noted. HEENT: Head is atraumatic, normocephalic. Pupils equal, round. Sclerae is anicteric. Conjunctiva are pink. Mucous members of the mouth are moist. No lesions are noted patient is in good order. Has some mild facial sinus tenderness on exam. NECK: Supple. No JVD. No lymphadenopathy. No thyromegaly. No nuchal rigidity. Full range of motion to the neck. LUNGS: Clear to auscultation. No wheezes or rhonchi. No intercostal retractions. HEART: Regular rate and rhythm. No murmur. ABDOMEN: Soft. Bowel sounds are present. No masses. No tenderness. EXTREMITIES: No pedal edema. No calf tenderness. Dorsalis pedis +2 bilaterally. NEUROLOGICAL: Patient is awake, alert and oriented x3 - Labs CBC & Chem 7: 04/09/18 05:23 04/09/18 05:23 Labs: Abnormal Lab Results - Last 24 Hours (Table) 04/09/18 04/09/18 Range/Units 05:23 05:23 WBC 21.2 H (3.8-10.6) k/uL Chloride 114 H (98-107) mmol/L Carbon Dioxide 20 L (22-30) mmol/L Glucose 127 H (74-99) mg/dL AST 55 H (14-36) U/L ALT 54 H (9-52) U/L Total Protein 5.9 L (6.3-8.2) g/dL Albumin 3.3 L (3.5-5.0) g/dL Microbiology - Last 24 Hours (Table) 04/07/18 14:45 Blood Culture - Preliminary Blood No Growth after 48 hours Laboratory Results WBC 21.2 k/uL (3.8-10.6) H 04/09/18 05:23 RBC 3.82 m/uL (3.80-5.40) 04/09/18 05:23 Hgb 11.5 gm/dL (11.4-16.0) 04/09/18 05:23 Hct 35.4 % (34.0-46.0) 04/09/18 05:23 MCV 92.6 fL (80.0-100.0) 04/09/18 05:23 MCH 30.0 pg (25.0-35.0) 04/09/18 05:23 MCHC 32.4 g/dL (31.0-37.0) 04/09/18 05:23 RDW 13.7 % (11.5-15.5) 04/09/18 05:23 Plt Count 255 k/uL (150-450) 04/09/18 05:23 Neutrophils % 88 % 04/07/18 14:45 Lymphocytes % 6 % 04/07/18 14:45 Monocytes % 3 % 04/07/18 14:45 Eosinophils % 2 % 04/07/18 14:45 Basophils % 0 % 04/07/18 14:45 Neutrophils # 10.2 k/uL (1.3-7.7) H 04/07/18 14:45 Lymphocytes # 0.6 k/uL (1.0-4.8) L 04/07/18 14:45 Monocytes # 0.4 k/uL (0-1.0) 04/07/18 14:45 Eosinophils # 0.2 k/uL (0-0.7) 04/07/18 14:45 Basophils # 0.0 k/uL (0-0.2) 04/07/18 14:45 PT 9.7 sec (9.0-12.0) 04/07/18 14:45 INR 1.0 (<1.2) 04/07/18 14:45 APTT 18.2 sec (22.0-30.0) L 04/07/18 14:45 D-Dimer 0.42 mg/L FEU (<0.60) 04/07/18 14:45 Sodium 144 mmol/L (137-145) 04/09/18 05:23 Potassium 3.6 mmol/L (3.5-5.1) 04/09/18 05:23 Chloride 114 mmol/L (98-107) H 04/09/18 05:23 Carbon Dioxide 20 mmol/L (22-30) L 04/09/18 05:23 Anion Gap 10 mmol/L 04/09/18 05:23 BUN 15 mg/dL (7-17) 04/09/18 05:23 Creatinine 0.76 mg/dL (0.52-1.04) 04/09/18 05:23 Est GFR (CKD-EPI)AfAm >90 (>60 ml/min/1.73 sqM) 04/09/18 05:23 Est GFR (CKD-EPI)NonAf 86 (>60 ml/min/1.73 sqM) 04/09/18 05:23 Glucose 127 mg/dL (74-99) H 04/09/18 05:23 Lactic Ac Sepsis Rflx Y 04/07/18 15:30 Plasma Lactic Acid Arnoldo 1.9 mmol/L (0.7-2.0) 04/08/18 05:54 Calcium 9.3 mg/dL (8.4-10.2) 04/09/18 05:23 Magnesium 1.6 mg/dL (1.6-2.3) 04/07/18 14:45 Total Bilirubin 0.3 mg/dL (0.2-1.3) 04/09/18 05:23 AST 55 U/L (14-36) H 04/09/18 05:23 ALT 54 U/L (9-52) H 04/09/18 05:23 Alkaline Phosphatase 65 U/L (38-126) 04/09/18 05:23 Total Creatine Kinase 99 U/L (30-135) 04/07/18 14:45 CK-MB (CK-2) 0.4 ng/mL (0.0-2.4) 04/07/18 14:45 CK-MB (CK-2) Rel Index 0.4 04/07/18 14:45 Troponin I <0.012 ng/mL (0.000-0.034) 04/07/18 14:45 NT-Pro-B Natriuret Pep 230 pg/mL 04/07/18 14:45 Total Protein 5.9 g/dL (6.3-8.2) L 04/09/18 05:23 Albumin 3.3 g/dL (3.5-5.0) L 04/09/18 05:23 Influenza Type A RNA Not Detected (Not Detectd) 04/08/18 14:20 Influenza Type B (PCR) Not Detected (Not Detectd) 04/08/18 14:20 Microbiology 04/07/18 14:45 Blood Blood Culture - Preliminary No Growth after 48 hours Assessment and Plan (1) Acute exacerbation of chronic obstructive airways disease Current Visit: Yes Status: Acute Code(s): J44.1 - CHRONIC OBSTRUCTIVE PULMONARY DISEASE W (ACUTE) EXACERBATION SNOMED Code(s): 930703088 (2) Acute bacterial sinusitis Narrative/Plan: 62-year-old female who has an extensive past medical history including 6 surgeries to her spine presents to Hospital feeling very poorly with a several-day history of acute illness associated with fever chills significant sinus congestion and some shortness of breath. 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 He said influenza was requested is now come back as negative. The first was concerns that the patient could've had meningitis however she is currently awake and alert. She is without headache. Her thoughts are clear. She has no acute neurological deficits and she is able to ambulate to the restroom pushing her IV pole. The patient is now markedly improved after IV fluids, intravenous antibiotic therapy, and steroid therapy. She developed a rash that appears to already be improving on the anterior chest wall near her neck. She relates nonpruritic rash. No other rashes are noted. And is noted on the exam her neck is supple and she is no evidence of any encephalopathy. Patient likely has an acute bacterial sinusitis and abnormalities were seen the computed tomography scan consistent with an acute sinusitis. If this time cultures are in process and will have further recommendations about antibiotic therapy is cultures become available. She does have a long-standing history of COPD and emphysema but appears to not have an acute exacerbation at this time. We'll likely have her steroid therapy rapidly reduced. 04/09/2018 reveals the patient to have significant improvement of her status except she is developed headache again this afternoon. Received some ibuprofen with some improvement but is not significant. She is not having fever or chills. Continues to have some ongoing sinus congestion. Her pulmonary status is now improved. Her steroids are being rapidly tapered. Her aunts microbial therapy per the primary service is ready been transitioned to oral antibiotic therapy. Will offer some Toradol to see if this cannot help her headache. Current Visit: Yes Status: Acute Code(s): J01.90 - ACUTE SINUSITIS, UNSPECIFIED; B96.89 - OTH BACTERIAL AGENTS THE [facility] Code(s): 64194366
[2018-04-10 05:12] VITALS: TEMP 97.5
[2018-04-10] MEDS: PANTOPRAZOLE 40 MG TABLET PO SCH (06:23)
[2018-04-10 06:51] LABS: HCT 34.3 % (34.0-46.0); HGB 11.2 gm/dL (11.4-16.0); MCH 30.3 pg (25.0-35.0); MCHC 32.7 g/dL (31.0-37.0); MCV 92.6 fL (80.0-100.0); Mean Platelet Volume 7.1; Platelet Count 267 k/uL (150-450); RBC 3.71 m/uL (3.80-5.40); RDW 13.7 % (11.5-15.5); WBC 17.1 k/uL (3.8-10.6)
[2018-04-10 07:04] LABS: ALT 67 U/L (9-52); AST 44 U/L (14-36); Albumin 3.2 g/dL (3.5-5.0); Alkaline Phosphatase 61 U/L (38-126); Anion Gap 8 mmol/L; Blood Urea Nitrogen 27 mg/dL (7-17); Calcium 9.1 mg/dL (8.4-10.2); Carbon Dioxide 23 mmol/L (22-30); Chloride 110 mmol/L (98-107); Glucose 138 mg/dL (74-99); Potassium 3.7 mmol/L (3.5-5.1); Sodium 141 mmol/L (137-145); Total Bilirubin 0.3 mg/dL (0.2-1.3); Total Protein 5.6 g/dL (6.3-8.2)
[2018-04-10] MEDS: IPRATROPIUM-ALBUTEROL 3 ML NEB INHALATION SCH ×2 (08:13→11:24)
[2018-04-10 08:47] VITALS: BP 122/71; RESP 16
[2018-04-10 09:58] VITALS: PULSE 96
--- NOTE | 2018-04-10 15:47 | P.DS ---
Providers Date of admission: 04/07/18 17:27 Expected date of discharge: 04/10/18 Attending physician: Vianey Christy MD Consults: 04/08/18 09:56 Consult Physician Urgent Consulting Provider: Raulito Urbina Consult Reason/Comments: Severe sepsis, secondary to acute bacterial sinusitis, suspected meningitis Do you want consulting provider notified?: Yes Primary care physician: [facility] Course: The patient is a 62-year-old female with a past medical history of diverticulosis, and COPD who presented to the ED with chief complaint of headache, shortness of breath, sinus congestion, and vomiting. The patient had sinus congestion ongoing for several weeks with associated headache, postnasal drip, facial pain, and ear fullness. The patient was found to have severe sepsis secondary to sinusitis and was admitted to the inpatient unit for further management. She was initially managed with empiric ceftriaxone therapy which was subsequently downgraded to Augmentin twice a day. The patient was also managed for COPD exacerbation with IV steroids and DuoNeb therapy. Infectious disease was consulted and their recommendations were appreciated. The patient's condition gradually improved and she was afebrile for 48 hours and is presently stable and ready for discharge home. Physical Examination General: Awake, alert, in no acute distress HEENT: NC/AT, anicteric sclerae, moist conjunctiva, no lid-lag, PERRLA, oropharynx clear, no erythema, exudates, mild facial tenderness Cardiovascular: S1/S2 wnl, no murmurs, rubs, or gallops Lungs: Clear to auscultation, normal respiratory effort, no accessory muscle use Abdominal: Soft, nontender, non-distended, no guarding, rebound, or rigidity, normoactive bowel sounds Skin: Warm, dry Extremities: No edema or contractures Psychiatric: Alert and oriented to person, place and time, appropriate affect, Intact judgment Neuro: CN II-XI grossly intact, sensation to light touch grossly present throughout, no focal sensory deficits Discharge diagnosis: Acute bacterial sinusitis, Severe sepsis, COPD exacerbation , Leukocytosis A total of 60 minutes of time were spent preparing this complex discharge summary. Patient Condition at Discharge: Stable Plan - Discharge Summary Discharge Rx Participant: Yes New Discharge Prescriptions: New Amoxic-Pot Clav 875-125Mg [Augmentin 875-125] 1 each PO Q12HR 5 Days #10 tab Budesonide/Formoterol Fumarate [Symbicort 80-4.5 Mcg Inhaler] 2 puff INHALATION BID #1 inhaler predniSONE 10 mg PO DIRECTED #15 tab Albuterol Sulfate [Proair Hfa] 1 - 2 puff INHALATION Q6HR PRN #1 inhaler PRN Reason: Shortness Of Breath Continue Loperamide [Imodium] 2 mg PO TID-W/MEALS Ranitidine HCl 300 mg PO BID Gabapentin [Neurontin] 100 mg PO HS Dm/PE/Acetaminophen/Doxylamine [Vicks Nyquil Severe Cold-Flu] 1 tab PO Q6HR PRN PRN Reason: Cold Symptoms Discontinued Ibuprofen [Motrin] 800 mg PO TID PRN PRN Reason: Pain Discharge Medication List Dm/PE/Acetaminophen/Doxylamine [Vicks Nyquil Severe Cold-Flu] 1 tab PO Q6HR PRN 04/07/18 [History] Gabapentin [Neurontin] 100 mg PO HS 04/07/18 [History] Loperamide [Imodium] 2 mg PO TID-W/MEALS 04/07/18 [History] Ranitidine HCl 300 mg PO BID 04/07/18 [History] Albuterol Sulfate [Proair Hfa] 1 - 2 puff INHALATION Q6HR PRN #1 inhaler [Rx] Amoxic-Pot Clav 875-125Mg [Augmentin 875-125] 1 each PO Q12HR 5 Days #10 tab [Rx] Budesonide/Formoterol Fumarate [Symbicort 80-4.5 Mcg Inhaler] 2 puff INHALATION BID #1 inhaler 04/10/18 [Rx] predniSONE 10 mg PO DIRECTED #15 tab 04/10/18 [Rx] Follow up Appointment(s)/Referral(s): Enrike Vargas MD [Primary Care Provider] - 1-2 days Discharge Disposition: HOME SELF-CARE
== END 2018-04-10 12:35 | disposition home or self-care (01) | DRG 872 ==
LOC: EC 14:22 → 6SEL 17:27
PROVIDERS: ADMIT Internal Medicine; ATTEND Internal Medicine
DX: A41.9 Sepsis, unspecified organism (principal); E87.2 Acidosis; J44.1 Chronic obstructive pulmonary disease with (acute) exacerbation; J80 Acute respiratory distress syndrome; B96.89 Other specified bacterial agents as the cause of diseases classified elsewhere; Z87.891 Personal history of nicotine dependence; J01.00 Acute maxillary sinusitis, unspecified; F41.9 Anxiety disorder, unspecified; M79.7 Fibromyalgia; R65.20 Severe sepsis without septic shock; Z80.0 Family history of malignant neoplasm of digestive organs; Z82.49 Family history of ischemic heart disease and other diseases of the circulatory system; Z85.3 Personal history of malignant neoplasm of breast; Z90.710 Acquired absence of both cervix and uterus; R21 Rash and other nonspecific skin eruption; Z85.118 Personal history of other malignant neoplasm of bronchus and lung; M32.9 Systemic lupus erythematosus, unspecified; F40.240 Claustrophobia; K57.90 Diverticulosis of intestine, part unspecified, without perforation or abscess without bleeding; Z92.3 Personal history of irradiation; Z92.21 Personal history of antineoplastic chemotherapy; G43.909 Migraine, unspecified, not intractable, without status migrainosus; Z87.01 Personal history of pneumonia (recurrent)
CPT/HCPCS: 36415; 70470; 71046; 80053; 82550; 82553; 83605; 83735; 83880; 84484; 85025; 85027; 85379; 85610; 85730; 87040; 87502; 93005; 94640; 94760; 96361; 96365; 96375; 99291

== ENCOUNTER → 2018-09-29 | Outpatient (CLI) | payer MEDICARE ==
[2018-09-27 16:15] VITALS: BMI 25.2
[2018-09-29 12:26] VITALS: BP 140/67; PULSE 70; RESP 18
--- NOTE | 2018-09-29 13:09 | P.CONS ---
History of Present Illness - Reason for Consult Consult date: 09/29/18 - Chief Complaint Neck and arm pain bilaterally - History of Present Illness This is a 63-year-old lady with history of 6 back surgeries on the lumbar spine however she is here today mostly for her neck pain that has been getting worse lately. The pain starts in the midthoracic area and radiates up to the neck area and also to both shoulders more the right side than the left side. This pain also radiates down the arms on the lateral aspect of the arms down to the elbow level bilaterally more on the right side than the left side. The patient describes her pain in the arms as burning pain in quality. She had an MRI done on the cervical spine which was essentially insignificant and could not find an explanation for this pain. The patient denies any bowel or bladder dysfunction. She feels some numbness in her right hand. She also has weakness in both arms. Review of Systems Cardiovascular: Reports high blood pressure Respiratory: Denies cough Neurological: Reports as per HPI Past Medical History Past Medical History: Cancer, COPD, Fibromyalgia, GERD/Reflux, Osteoarthritis (OA), Pneumonia Additional Past Medical History / Comment(s): rt breast cancer-sx/radaition, chemo.pt stated the chemo affected her kidneys and she had to do hemodialysis for3 months., diverticulosis, migraines,emphysema. , possible lupus, ddd-past bulging/ruptured discs(sx), past broken rt ankle x2., pneumonia (2018), states pain between shoulders & into her neck and head- affects right arm and arms "burn"., occasional vertigo. History of Any Multi-Drug Resistant Organisms: None Reported Past Surgical History: Back Surgery, Breast Surgery, Cholecystectomy, Hysterectomy Additional Past Surgical History / Comment(s): rt breast lumpectomy, mavis breast reduction, 6 back surgeries with donor bone and tissue., partial hysterectomy Past Anesthesia/Blood Transfusion Reactions: No Reported Reaction Additional Past Anesthesia/Blood Transfusion Reaction / Comm: clausterphobia, occasional vertigo Smoking Status: Former smoker - Past Family History Mother Family Medical History: Cancer Additional Family Medical History / Comment(s): lung and colon cancer Father Family Medical History: Coronary Artery Disease (CAD), Myocardial Infarction ([place]) Medications and Allergies Home Medications Medication Instructions Recorded Confirmed Type Gabapentin [Neurontin] 200 mg PO HS 04/07/18 09/27/18 History Ranitidine HCl 300 mg PO BID 04/07/18 09/27/18 History Antidiarrheal 1 dose PO DIRECTED PRN 09/27/18 History Cholecalciferol (Vitamin D3) 6,000 unit PO DAILY 09/27/18 09/27/18 History [Vitamin D3] Diazepam [Valium] 10 mg PO HS PRN 09/27/18 09/27/18 History Ibuprofen [Motrin] 800 mg PO TID 09/27/18 09/27/18 History Diazepam [Valium] 1 tab PO HS 09/29/18 09/29/18 History Diphenox-Atrop 2.5-0.025 mg 1 tab PO Q6HR 09/29/18 09/29/18 History [Lomotil] Allergies Allergy/AdvReac Type Severity Reaction Status Date / Time fluticasone Allergy Unknown Rash/Hives, Verified 09/27/18 16:01 [From Advair Diskus] Itching titanium Allergy Unknown Would not Verified 09/27/18 16:04 Heal fentanyl Allergy Rash/Hives, Verified 09/27/18 16:01 Itching hydrocodone [From Vicodin] Allergy Rash/Hives, Verified 09/27/18 16:01 Tremors, Itching morphine Allergy Agitated , Verified 09/27/18 16:03 Itching salmeterol Allergy Rash/Hives, Verified 09/27/18 16:03 [From Advair Diskus] Itching tramadol [From Ultram] Allergy Rash/Hives, Verified 09/27/18 16:03 Tremors, Itching some metals Allergy Unknown Uncoded 04/07/18 14:54 Physical Exam Vitals: Vital Signs Pulse Resp BP 09/29/18 12:11 70 18 140/67 - Constitutional General appearance: average body habitus - EENT Eyes: PERRLA - Respiratory Respiratory: bilateral: CTA - Cardiovascular Rhythm: regular - Neurologic Neuro exam of the upper extremities shows weakness in the right hand shade maker and also on the right wrist flexion and extension to 3 out of 5. Also weakness in the elbow flexion the right side to 4 out of 5. And weakness in the deltoid muscle and abduction to 4 out of 5 bilaterally. She has significant tenderness in the cervical and upper thoracic paravertebral musculature more on the right side. Neurologic: CNII-XII intact - Psychiatric Psychiatric: A&O x's 3, appropriate affect, intact judgment & insight Results Results: Cervical spine MRI shows was to arthritic changes diffusely without any cord compression. Assessment and Plan Plan: This is a 63-year-old lady with a three-year history of increasing neck and upper back pain with radiation to the upper extremities. She does have weakness in the right arm. The cervical spine MRI does not explain these changes. She might have cervical spondylosis without myelopathy which might explain her neck pain however this does not explain her weakness in the right upper extremity. I will send the patient to have an EMG and nerve conduction test on the upper extremities to try to detect the cause of her weakness. She might benefit from getting cervical medial branch block as a diagnostic procedure in the future. She also may need some injections on the lumbar spine including caudal epidural steroid injection. We will see the patient after she gets her EMG done. I thank you for the referral
== END | disposition home or self-care (01) ==
LOC: PNWHC3 12:08
PROVIDERS: ATTEND Anesthesiology
DX: M54.2 Cervicalgia (principal); M54.6 Pain in thoracic spine; R53.1 Weakness; Z87.891 Personal history of nicotine dependence; Z88.5 Allergy status to narcotic agent; Z88.8 Allergy status to other drugs, medicaments and biological substances
CPT/HCPCS: 99211

== ENCOUNTER → 2018-11-08 | Outpatient (CLI) | payer MEDICARE ==
[2018-11-08 14:21] VITALS: BP 135/90; PULSE 74; RESP 18
--- NOTE | 2018-11-08 19:01 | P.PAINPG ---
Subjective Progress Note Date: 11/08/18 This is a follow-up visit for this 63-year-old lady with a three-year history of increasing neck and upper back pain with radiation to the upper extremities. She does have weakness in the right arm. The cervical spine MRI does not explain these changes. Patient was referred last visit to have EMG and nerve conduction test on the upper extremities to try to detect the cause of her weakness. 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 and there is no evidence of radiculopathy, patient continued to report that she had severe neck pain and upper back pain radiated to both shoulder area , and upper extremities, with occasional weakness in the upper extremities, she denies any fever or night sweats which she denies any change in the bowel movement or urination, patient had cervical MRI did not show any abnormalities Objective - Vital Signs Vital signs: Vital Signs Temp Pulse 74 11/08/18 14:07 Resp 18 11/08/18 14:07 BP 135/90 11/08/18 14:07 Pulse Ox 99 11/08/18 14:07 Intake & Output 11/07/18 11/08/18 11/08/18 18:59 06:59 18:59 Weight 75.296 kg - Exam Physical Examinations : -Constitutiona : Cooperative , not in acute distress . -HEENT : nech ; supple , no Lymphadenopathy , normal thyroid size . eyes : no ptosis , no icterus, no photophobia . ENT : normal of hearing , normal oropharynx , no Thrush . - Respiratory : Chest clear to auscultations Bilaterally , no wheezing , no Rhonchi . - Cardiovascula : regular rate and rhythem , S1 , S2 , no S3 , no S4. - Gastrointestina : abdomen soft no tenderness , bowel sounds , no organomegally . - Genitourinary : Defferred . - neurologic : Cranial nerve II to XII intact , no focal neurological deffecit . -psychatric : alert , oriented X 3 , appropriate affect , intact judgment and insight . -Lymphatic : no Lymphadenopathy . - musculoskeltal : Cervical Spine motor stregnth in the deltoid and biceps, normal right side , normal Left side motor stregnth biceps and the wrist extensors decreased right side , decreased left side . motor stregnth in the triceps muscle . normal Right side , normal Left side positive cervical facet loading test . Spurling test negative bilaterally. Severe and extensive trigger points in the rhomboid trapezius and suprascapular area And infrascapular ,thoracic paravertebral muscles Lumber spine moter stegnth lower extremities ,thigh and legs 5/5 Right side , 5/5 Left side Assessment and Plan Plan: Assessment and plan= chronic severe neck pain and upper back pain with radiation to the upper extremities, MRI of the cervical spine showed no significant etiology causing and explaining the symptoms, patient had EMG nerve conduction study Showed bilateral median nerve mononeuropathy, no cervical radiculopathy Clinically patient had severe, and extensive myofascial pain syndrome mainly at the right rhomboid and trapezius muscle and shoulder blade area, and thoracic paravertebral muscles, discussed with the patient the option of referring her to physical therapy, patient reported that she has done physical therapy previously without benefit, and currently she is going to pool therapy, discussed with the patient the option of doing a trigger point injection, patient not interested in having , trigger point injection, patient could benefit from a muscle relaxant baclofen 10 mg twice a day, and she should continue using Motrin 800 mg every 12 hours (currently she is using 3 times a day ), patient could benefit from Voltaren gel to be applied to the muscles on the right side trapezius and rhomboid muscles, Patient will follow up in the pain clinic in 4 weeks Time with Patient: Less than 30 PQRS Measure Charge Sheet Measure #130: Documentation of Current Meds in Medical Chart: Patient's medications documented in chart Measure #226: Tobacco Use: Screen & Cessation Intervention: Pt not a tobacco user Measure #111: Pneumonia Vaccination: Pneumococcal vaccine NOT administered or previously given Measure #47: Advance Care Plan: Advance care planning discussed & documented, pt chose/unable to give Measure #412: Opioid Treatment Agreement: No documentation of signed opioid treatment agreement Measure #408: Opioid Therapy Follow-up Evaluation: Patient had NO f/u eval minimum every 3 months during opioid therapy Measure #317: Preventitive Care & Scrn High Bld Press & F/U: Normal blood pressure, f/u not required Measure #128: Body Mass Index (BMI) Screening & Follow-up: BMI documented ABOVE normal parameters - f/u documented Measure #131: Pain Assessment & Follow-up: Pain positive & plan documented, Follow-up scheduled Measure #431: Unhealthy Alcohol Use Preventative Care & Scrn: Patient not identified as an unhealthy alcohol user PQRS Narrative: Smoking Status Former smoker Do You Want the Pneumonia No Vaccine AT THIS TIME? Blood Pressure 135/90 Pain Intensity [Upper Back] 7 Pain Intensity [Lower Back] 6 Hx Alcohol Use (MH) No Home Medications: Ambulatory Orders Gabapentin [Neurontin] 300 mg PO HS 04/07/18 Ranitidine HCl 300 mg PO BID 04/07/18 Antidiarrheal 1 dose PO DIRECTED PRN 09/27/18 Cholecalciferol (Vitamin D3) [Vitamin D3] 6,000 unit PO DAILY 09/27/18 Diazepam [Valium] 10 mg PO HS PRN 09/27/18 Ibuprofen [Motrin] 800 mg PO TID 09/27/18 Diazepam [Valium] 1 tab PO HS 09/29/18 Diphenox-Atrop 2.5-0.025 mg [Lomotil] 1 tab PO Q6HR 09/29/18 Diclofenac Sodium Gel [Voltaren Gel] 1 TOPICAL BID PRN 11/08/18 Controlled Substance Measures - Controlled Substance Measures Is patient prescribed a controlled substance at discharge?: No
== END ==
LOC: PNWHC3 13:20
PROVIDERS: ATTEND Specialist
DX: G89.29 Other chronic pain (principal); M54.2 Cervicalgia; M54.6 Pain in thoracic spine; G56.13 Other lesions of median nerve, bilateral upper limbs; M79.18 Myalgia, other site; Z79.899 Other long term (current) drug therapy; Z79.1 Long term (current) use of non-steroidal anti-inflammatories (NSAID); Z87.891 Personal history of nicotine dependence
CPT/HCPCS: 99211

== ENCOUNTER → 2018-11-10 | Outpatient (CLI) | payer MEDICARE ==
--- NOTE | 2018-11-14 08:00 | MM ---
Reason for exam: screening (asymptomatic). Last mammogram was performed 2 years and 3 months ago. History: Patient is postmenopausal. Family history of breast cancer. Reductions of both breasts, 2001. Physical Findings: A clinical breast exam by your physician is recommended on an annual basis and results should be correlated with mammographic findings. MG 3D Screening Mammo W/Cad Bilateral CC and MLO view(s) were taken. Prior study comparison: August 14, 2016, bilateral MG 3d screening mammo w/cad. The breast tissue is almost entirely fat. Finding: There are typically benign dystrophic calcifications in both breasts. No significant changes in finding since August 14, 2016. ASSESSMENT: Benign, BI-RAD 2 RECOMMENDATION: Routine screening mammogram of both breasts in 1 year.
== END | disposition home or self-care (01) ==
LOC: RADMAMWWP 16:36
PROVIDERS: ATTEND Family Medicine
DX: Z12.31 Encounter for screening mammogram for malignant neoplasm of breast (principal)
CPT/HCPCS: 77063; 77067

== ENCOUNTER → 2020-03-11 | Outpatient (CLI) | payer MEDICARE, OTHER ==
--- NOTE | 2020-03-12 10:11 | MM ---
Reason for exam: screening (asymptomatic). Last mammogram was performed 1 year and 4 months ago. History: Patient is postmenopausal. Family history of breast cancer in aunt. Reductions of both breasts, 2001. Physical Findings: A clinical breast exam by your physician is recommended on an annual basis and results should be correlated with mammographic findings. MG 3D Screening Mammo W/Cad Bilateral CC and MLO view(s) were taken. Prior study comparison: November 10, 2018, bilateral MG 3d screening mammo w/cad. August 14, 2016, bilateral MG 3d screening mammo w/cad. There are scattered fibroglandular densities. Stable benign calcifications. There is no discrete abnormality. No significant changes when compared with prior studies. ASSESSMENT: Benign, BI-RAD 2 RECOMMENDATION: Routine screening mammogram of both breasts in 1 year.
== END | disposition home or self-care (01) ==
LOC: RADMAMWWP 08:23
DX: Z12.31 Encounter for screening mammogram for malignant neoplasm of breast (principal)
CPT/HCPCS: 77063; 77067